=== PATIENT | female | born 1935 | race Caucasian/White ===

== ENCOUNTER 2023-04-07 18:51 | Inpatient (IN) | payer MEDICARE, OTHER ==
[~2023-04-07] VITALS: Ht 160 cm; Wt 56.3 kg
[2023-04-07] MEDS ORDERED: MECLIZINE HCL 25 MG TABLET PO ONE (20:00)
[2023-04-07] MEDS ORDERED: ONDANSETRON ODT 4 MG TAB.RAPDIS SL ONE (20:00)
[2023-04-07] MEDS ORDERED: MECLIZINE HCL 25 MG TABLET ONE (20:03)
[2023-04-07] MEDS ORDERED: ONDANSETRON ODT 4 MG TAB.RAPDIS ONE (20:03)
[2023-04-07 20:11] LABS: EOSINOPHILS # (AUTO) 0.1 K/uL (0.0-0.7); EOSINOPHILS % (AUTO) 1.6 % (0.0-7.0); HEMATOCRIT 33.2 % (31.2-41.9); LYMPHOCYTES # (AUTO) 0.7 K/uL (0.8-4.8); LYMPHOCYTES % (AUTO) 17.7 % (20.5-51.5); MEAN CORPUSCULAR HEMOGLOBIN 29.9 uug (24.7-32.8); MEAN CORPUSCULAR HGB CONC 33 g/dL (32.3-35.6); MEAN CORPUSCULAR VOLUME 90.5 fL (75.5-95.3); MONOCYTES # (AUTO) 0.3 K/uL (0.1-1.30); NEUTROPHILS % (AUTO) 71.7 % (38.5-71.5); PLATELET COUNT (AUTO) 238 K/uL (179-408); RED BLOOD CELL COUNT(AUTO) 3.67 MIL/uL (3.63-4.92); RED CELL DISTRIBUTION WIDTH 15.8 % (12.3-17.7); WHITE BLOOD COUNT (AUTO) 4.2 K/uL (3.8-11.8)
[2023-04-07 20:18] LABS: CARBON DIOXIDE 29 mmol/L (21-32); CHLORIDE 102 mmol/L (98-107); CREATININE 0.8 mg/dL (0.6-1.3); GLUCOSE 116 mg/dL (74-106); POTASSIUM 3.5 mmol/L (3.5-5.1); SODIUM SERUM 140 mmol/L (136-145); UREA NITROGEN, BLOOD 20 mg/dL (7-18)
[2023-04-07 20:19] LABS: DIFFERENTIAL COMMENT 1
[2023-04-07] MEDS ORDERED: ACETAMINOPHEN 325 MG TABLET PO PRN (23:00)
[2023-04-07] MEDS ORDERED: ONDANSETRON 4 MG/2 ML VIAL IV PRN (23:00)
[2023-04-07 23:13] LABS: *BILIRUBIN,URIN NEGATIVE (NEGATIVE); *CLARITY,URINE CLEAR (CLEAR); *COLOR,URINE YELLOW (YELLOW); *KETONES,URINE 2+ (NEGATIVE); *PROTEIN,URINE NEGATIVE (NEGATIVE); *UROBILINOGEN,URINE 0.2 E.U./dl (NORMAL); LEUKOCYTE ESTERASE ,URINE NEGATIVE (NEGATIVE); NITRITE, URINE NEGATIVE (NEGATIVE)
[2023-04-07 23:16] LABS: *BLOOD, URINE TRACE (NEGATIVE); UGLUCOSE 2+ (NEGATIVE)
[2023-04-07 23:38] LABS: BACTERIA,URINE FEW /HPF (NONE SEEN); SQUAMOUS EPITHELIAL CELL,UR FEW /HPF (NONE SEEN); WBC,URINE 0-3 /HPF (0-3)
[2023-04-08] MEDS ORDERED: VERQUVO PO (00:11)
[2023-04-08] MEDS ORDERED: DAPA10TA PO (00:11)
[2023-04-08] MEDS ORDERED: CHOL500062 PO (00:11)
[2023-04-08] MEDS ORDERED: ATOR40TA PO (00:11)
[2023-04-08] MEDS ORDERED: ACET-3117 PO (00:11)
[2023-04-08] MEDS ORDERED: FURO20TA4 PO (00:11)
[2023-04-08] MEDS ORDERED: DORZ10DR13 RIGHTEYE (00:11)
[2023-04-08] MEDS ORDERED: APIX2.5T PO (00:11)
[2023-04-08] MEDS ORDERED: MAGN400O6 PO (00:11)
[2023-04-08] MEDS ORDERED: SACU1TAB7 PO (00:11)
[2023-04-08] MEDS ORDERED: PRED5DRO24 RIGHTEYE (00:11)
[2023-04-08] MEDS ORDERED: VORT10TA PO (00:11)
[2023-04-08] MEDS ORDERED: PANT40TA2 PO (00:11)
[2023-04-08] MEDS ORDERED: ASPI81TA31 PO (00:11)
[2023-04-08] MEDS ORDERED: LATA7.5D LEFTEYE (00:11)
[2023-04-08] MEDS ORDERED: TEMAZEPAM 7.5 MG CAPSULE PO PRN (00:15)
[2023-04-08 00:58] VITALS: BP 135/77; TEMP 97.5; O2SAT 94
[2023-04-08 04:00] VITALS: BP 111/67; TEMP 98; O2SAT 98
[2023-04-08] MEDS: PANTOPRAZOLE SODIUM 40 MG TABLET.DR PO SCH (06:09)
[2023-04-08 07:24] LABS: BASOPHILS # (AUTO) 0.1 K/UL (0.0-0.2); BASOPHILS % (AUTO) 1.3 % (0.0-2.0); EOSINOPHILS # (AUTO) 0.1 K/uL (0.0-0.7); HEMATOCRIT 35.1 % (31.2-41.9); HEMOGLOBIN 11.9 g/dL (10.9-14.3); LYMPHOCYTES # (AUTO) 0.9 K/uL (0.8-4.8); LYMPHOCYTES % (AUTO) 21.8 % (20.5-51.5); MEAN CORPUSCULAR HEMOGLOBIN 30.5 uug (24.7-32.8); MEAN CORPUSCULAR HGB CONC 34 g/dL (32.3-35.6); MEAN CORPUSCULAR VOLUME 89.8 fL (75.5-95.3); MONOCYTES # (AUTO) 0.5 K/uL (0.1-1.30); MONOCYTES % (AUTO) 11.3 % (0.0-11.0); NEUTROPHILS # (AUTO) 2.6 K/uL (1.8-8.9); NEUTROPHILS % (AUTO) 63.6 % (38.5-71.5); PLATELET COUNT (AUTO) 233 K/uL (179-408); WHITE BLOOD COUNT (AUTO) 4.1 K/uL (3.8-11.8)
[2023-04-08 07:32] LABS: DIFFERENTIAL COMMENT 1
[2023-04-08 07:45] LABS: THYROID STIMULATING HORMONE 1.422 mIU/mL (0.358-3.740)
[2023-04-08 07:57] LABS: ALBUMIN 3.3 g/dL (3.4-5.0); BILIRUBIN,TOTAL 0.9 mg/dL (0.2-1.0); CALCIUM 8.9 mg/dL (8.5-10.1); CREATININE 0.9 mg/dL (0.6-1.3); PHOSPHOROUS 3.7 mg/dL (2.5-4.9); POTASSIUM 3.7 mmol/L (3.5-5.1); TOTAL PROTEIN, SERUM 6.4 g/dL (6.4-8.2)
[2023-04-08] MEDS ORDERED: MAGNESIUM HYDROXIDE 30 ML LIQUID UDC PO PRN (09:00)
[2023-04-08] MEDS: ASPIRIN EC 81 MG TABLET.DR PO SCH (09:49)
[2023-04-08] MEDS: APIXABAN 2.5 MG TABLET PO SCH ×2 (09:49→20:29)
[2023-04-08] MEDS: FUROSEMIDE 20 MG TABLET PO SCH (09:49)
[2023-04-08] MEDS: DORZOLAMIDE/TIMOLOL OPHT DROP 10 ML BOTTLE RIGHTEYE SCH (10:06)
[2023-04-08] MEDS: DAPAGLIFLOZIN PROPANEDIOL 5 MG TABLET PO SCH (10:08)
[2023-04-08 11:35] VITALS: BP 108/57; TEMP 98.7; O2SAT 95
[2023-04-08] MEDS ORDERED: SACU1TAB PO (12:28)
[2023-04-08] MEDS ORDERED: METF-440 PO (12:29)
[2023-04-08] MEDS ORDERED: VORT20TA PO (12:30)
[2023-04-08] MEDS ORDERED: DORZ10DR11 LEFTEYE (12:33)
[2023-04-08] MEDS ORDERED: PRED5DRO16 RIGHTEYE (14:21)
[2023-04-08 16:00] VITALS: BP 113/51; TEMP 98.2; O2SAT 94
[2023-04-08] MEDS ORDERED: prednisoLONE ACET 1% OPHT DROP 5 ML BOTTLE RIGHTEYE SCH (17:00)
[2023-04-08] MEDS: METFORMIN HCL 500 MG TABLET PO SCH ×2 (17:15→17:58)
[2023-04-08] MEDS: prednisoLONE ACET 1% OPHT DROP 5 ML BOTTLE RIGHTEYE SCH (17:15)
[2023-04-08 20:00] VITALS: BP 110/55; TEMP 97.9; O2SAT 93
[2023-04-08] MEDS: DORZOLAMIDE/TIMOLOL OPHT DROP 10 ML BOTTLE LEFTEYE SCH (20:30)
[2023-04-08] MEDS: LATANOPROST OPHT DROP 2.5 ML BOTTLE LEFTEYE SCH (20:34)
[2023-04-08] MEDS ORDERED: DOCUSATE SODIUM 100 MG CAPSULE PO SCH (21:00)
[2023-04-08] MEDS ORDERED: ATORVASTATIN 10 MG TABLET PO SCH (21:00)
[2023-04-09] VITALS: BP_SYST 108; BP_SYST 110; BP_DIAS 55; BP_DIAS 58; TEMP 97.7; TEMP 97.9; O2SAT 93; O2SAT 95
[2023-04-09 00:01] VITALS: BP 118/78; TEMP 97.5; O2SAT 96
[2023-04-09 04:00] VITALS: BP_SYST 105; BP_SYST 112; BP_DIAS 58; TEMP 97.4; TEMP 97.7; O2SAT 94; O2SAT 95
[2023-04-09] MEDS: PANTOPRAZOLE SODIUM 40 MG TABLET.DR PO SCH (06:03)
[2023-04-09] MEDS: FUROSEMIDE 20 MG TABLET PO SCH (08:10)
[2023-04-09] MEDS: APIXABAN 2.5 MG TABLET PO SCH (08:12)
[2023-04-09] MEDS: DAPAGLIFLOZIN PROPANEDIOL 5 MG TABLET PO SCH (08:12)
[2023-04-09] MEDS: LATANOPROST OPHT DROP 2.5 ML BOTTLE LEFTEYE SCH (08:13)
[2023-04-09] MEDS: prednisoLONE ACET 1% OPHT DROP 5 ML BOTTLE RIGHTEYE SCH ×3 (08:13→16:15)
[2023-04-09] MEDS: METFORMIN HCL 500 MG TABLET PO SCH (08:13)
[2023-04-09] MEDS: ASPIRIN EC 81 MG TABLET.DR PO SCH (08:13)
[2023-04-09] MEDS: DORZOLAMIDE/TIMOLOL OPHT DROP 10 ML BOTTLE RIGHTEYE SCH (08:13)
[2023-04-09] MEDS: DORZOLAMIDE/TIMOLOL OPHT DROP 10 ML BOTTLE LEFTEYE SCH (08:15)
[2023-04-09 11:24] VITALS: BP 128/74; TEMP 97.8; O2SAT 95
[2023-04-09 16:00] VITALS: BP 123/61; TEMP 98.8; O2SAT 93
== END 2023-04-09 17:45 | disposition home health service (06) | DRG 149 ==
LOC: ER 18:53 → TELE3 22:22
PROVIDERS: ADMIT Internal Medicine; ATTEND Nurse Practitioner Acute Care
DX: H81.10 Benign paroxysmal vertigo, unspecified ear (principal); I50.42 Chronic combined systolic (congestive) and diastolic (congestive) heart failure; I48.0 Paroxysmal atrial fibrillation; I25.2 Old myocardial infarction; I69.328 Other speech and language deficits following cerebral infarction; I69.331 Monoplegia of upper limb following cerebral infarction affecting right dominant side; I25.10 Atherosclerotic heart disease of native coronary artery without angina pectoris; Z95.0 Presence of cardiac pacemaker; Z79.01 Long term (current) use of anticoagulants; Z79.899 Other long term (current) drug therapy
CPT/HCPCS: 36415; 70450; 71045; 83735; 84100; 84443; 84484; 85025; 85730; 93005; 93880; G0378; J2650; J8597; Q0162